=== PATIENT | male | born 2000 | race Caucasian/White ===

== ENCOUNTER 2024-06-19 14:47 | Emergency (ER) | payer OTHER ==
[~2024-06-19] VITALS: Ht 175.3 cm; Wt 93.0 kg
[2024-06-19 14:47] VITALS: BP 160/82; PULSE 90; RESP 22; TEMP 36.83628; O2SAT 95
[2024-06-19] MEDS ORDERED: XYLOCAINE 2%-EPI 1:100,000 ID STA (14:57)
[2024-06-19] MEDS ORDERED: ROCEPHIN IM ONE (15:00)
[2024-06-19 15:06] VITALS: BP_SYST 160; RESP 22
[2024-06-19 15:08] VITALS: BP 160/82; PULSE 89; RESP 22; TEMP 98.3; O2SAT 95
[2024-06-19] MEDS ORDERED: ROCEPHIN ONE (15:10)
[2024-06-19] MEDS ORDERED: XYLOCAINE 2%-EPI 1:100,000 ONE (15:10)
[2024-06-19] MEDS ORDERED: NS 100ML 100 ML IV ONE (15:12)
[2024-06-19] MEDS: ROCEPHIN 1,000 MG in NS 100ML 100 ML IV STA (15:19)
[2024-06-19] MEDS ORDERED: ULTRAM ONE (15:38)
[2024-06-19] MEDS ORDERED: METH-622 PO (15:38)
[2024-06-19] MEDS ORDERED: ROBAXIN PO ONE (15:38)
[2024-06-19] MEDS ORDERED: CEPH500C PO (15:38)
[2024-06-19] MEDS ORDERED: NAPR-824 PO (15:38)
[2024-06-19] MEDS: ULTRAM PO STA (15:42)
[2024-06-19] MEDS: ROBAXIN PO STA (15:42)
[2024-06-19 15:45] VITALS: BP 168/86; PULSE 86; RESP 22; TEMP 98.3; O2SAT 99
== END 2024-06-19 15:54 | disposition home or self-care (01) ==
LOC: ER 14:47 → EDBD 14:47 → ER 15:54
DX: S01.01XA Laceration without foreign body of scalp, initial encounter (principal); S16.1XXA Strain of muscle, fascia and tendon at neck level, initial encounter; V87.7XXA Person injured in collision between other specified motor vehicles (traffic), initial encounter; Y93.89 Activity, other specified; Y92.410 Unspecified street and highway as the place of occurrence of the external cause; Y99.8 Other external cause status
CPT/HCPCS: 99284; 96365; 12001; A4649; J0696 ×2; J8499